=== PATIENT | male | born 1980 | race Caucasian/White ===

== ENCOUNTER 2016-11-07 12:59 | Emergency (ER) | payer OTHER ==
[2016-11-07] MEDS ORDERED: ONDANSETRON 4 MG/2 ML VIAL IVP ONE (13:51)
[2016-11-07] MEDS ORDERED: NS 1,000 ML IV ONE ×2 (13:51→14:19)
[2016-11-07] MEDS ORDERED: LORazepam 2 MG/ML INJ IVP ONE ×2 (13:51→15:29)
--- NOTE | 2016-11-07 13:51 | UCPHY ---
H & P Patient Type: New Chief Complaint Nursing Narrative: DRANK 12 SHOTS OF VODKA LAST NIGHT AROUND 6PM ; REPORTS PATRICIA, ANXIETY, SWEATS, SHAKES, VOMITING NOW Time Seen by Provider: 11/07/16 13:10 HPI/ROS: 36-year-old male presents complaining of alcohol withdrawal he states his last drink was at 6:00 p.m. yesterday. He states at that time he had 12 shots of vodka. He states he has decided to stop drinking and therefore if having nausea , vomiting and feels tremulous. He also states he does not want to have his children see him tremulous. Review of systems As per HPI Positive tremor General no fever no chills no weakness HEENT no eye pain no eye discharge. No eye redness, no sore throat Respiratory no cough, no shortness of breath Cardiac no chest pain, no peripheral edema GI no abdominal pain, no diarrhea, no constipation, positive nausea positive vomiting no flank pain, no hematuria, no dysuria Musculoskeletal no myalgias, no joint pain Heme no easy bruising, no easy bleeding Endo no polyuria, no polydipsia Skin no rashes, no pruritus Neuro no syncope, no dizziness, no headaches Psych is no suicidal ideation, no homicidal ideation Source: Patient Exam Limitations: No limitations - Personal History Current Tetanus/Diphtheria Vaccine: Unsure Tetanus Vaccine Date: 1997 - Medical/Surgical History Hx Asthma: No Hx Chronic Respiratory Disease: No Hx Diabetes: No Hx Cardiac Disease: No Hx Renal Disease: No Hx Cirrhosis: No Hx Alcoholism: Yes Hx HIV/AIDS: No Hx Splenectomy or Spleen Trauma: No Other PMH: KIDNEY STONES - Family History Significant Family History: No pertinent family hx - Social History Smoking Status: Current every day smoker Alcohol Use: Heavy - Physical Exam Exam: 36-year-old male alert and oriented with mild tremor, hypertensive tachycardic HEENT atraumatic normocephalic, extraocular muscles intact, anicteric Oropharynx negative for erythema negative exudate, tolerating her own secretions Neck supple no meningismus Lungs clear to auscultation bilaterally Heart regular rate and rhythm without murmur rub or gallop, tachycardic Abdomen nondistended normoactive bowel sounds soft nontender Back no CVA tenderness, no step-offs, no spinal tenderness Extremities no cyanosis clubbing or edema Neuro alert and oriented, no focal deficits, mild tremor generalized Constitutional: Initial Vital Signs Temperature (C) 36.6 C 11/07/16 13:09 Heart Rate 96 11/07/16 13:09 Respiratory Rate 20 11/07/16 13:09 Blood Pressure 191/120 H 11/07/16 13:09 O2 Sat (%) 93 11/07/16 13:09 O2 Delivery Mode Room Air Allergies/Adverse Reactions: No Known Allergies Allergy (Verified 11/07/16 13:09) Home Medications: Medication Instructions Recorded chlordiazePOXIDE [Librium 25 mg 25 mg PO TID #18 cap 11/07/16 (*)] Medical Decision Making ED Course/Re-evaluation: Patient seen and evaluated for alcohol withdrawal Last drink yesterday, alcohol less than 10 Electrolytes within normal limits Lipase negative LFTs negative Patient given IV normal saline 2 L, Ativan 2 mg IV push, Zofran 4 mg feeling markedly improved Patient discharged home on Librium taper Impression Acute alcohol withdrawal Plan Follow-up PCP for alcohol counseling referral Home on Librium taper If markedly worsening withdrawal symptoms go to her closest emergency department - Data Points Laboratory Results: Laboratory Results 11/07/16 13:19 11/07/16 13:19 11/07/16 11/07/16 13:19 13:19 WBC 10.57 10^3/uL H 10^3/uL (3.80-9.50) RBC 5.66 10^6/uL 10^6/uL (4.40-6.38) Hgb 18.5 g/dL H g/dL (13.7-17.5) Hct 50.0 % % (40.0-51.0) MCV 88.3 fL fL (81.5-99.8) MCH 32.7 pg pg (27.9-34.1) MCHC 37.0 g/dL H g/dL (32.4-36.7) RDW 11.9 % % (11.5-15.2) Plt Count 261 10^3/uL 10^3/uL (150-400) MPV 9.6 fL fL (8.7-11.7) Neut % (Auto) 63.4 % % (39.3-74.2) Lymph % (Auto) 29.0 % % (15.0-45.0) [place] % (Auto) 6.4 % % (4.5-13.0) Eos % (Auto) 0.6 % % (0.6-7.6) Baso % (Auto) 0.4 % % (0.3-1.7) Nucleat RBC Rel Count 0.0 % % (0.0-0.2) Absolute Neuts (auto) 6.70 10^3/uL H 10^3/uL (1.70-6.50) Absolute Lymphs (auto) 3.07 10^3/uL H 10^3/uL (1.00-3.00) Absolute Monos (auto) 0.68 10^3/uL 10^3/uL (0.30-0.80) Absolute Eos (auto) 0.06 10^3/uL 10^3/uL (0.03-0.40) Absolute Basos (auto) 0.04 10^3/uL 10^3/uL (0.02-0.10) Absolute Nucleated RBC 0.00 10^3/uL 10^3/uL (0-0.01) Immature Gran % 0.2 % % (0.0-1.1) Immature Gran # 0.02 10^3/uL 10^3/uL (0.00-0.10) Sodium 142 mEq/L mEq/L (134-144) Potassium 3.5 mEq/L mEq/L (3.5-5.2) Chloride 99 mEq/L mEq/L (97-110) Carbon Dioxide 20 mEq/l L mEq/l (22-31) Anion Gap 23 mEq/L H mEq/L (8-16) BUN 6 mg/dL L mg/dL (7-23) Creatinine 0.7 mg/dL mg/dL (0.7-1.3) Estimated GFR > 60 Glucose 141 mg/dL H mg/dL (70-100) Calcium 9.4 mg/dL mg/dL (8.5-10.4) Total Bilirubin 1.6 mg/dL H mg/dL (0.1-1.4) AST 74 IU/L H IU/L (17-59) ALT 60 IU/L IU/L (21-72) Alkaline Phosphatase 121 IU/L IU/L (38-126) Total Protein 8.1 g/dL g/dL (6.3-8.2) Albumin 4.7 g/dL g/dL (3.5-5.0) Lipase 83.0 IU/L IU/L (23-300) Ethyl Alcohol < 10 mg/dL mg/dL (0-10) Medications Given: Discontinued Medications Sodium Chloride (Ns) 1,000 mls @ 0 mls/hr IV ONCE ONE PRN Reason: Wide Open Stop: 11/07/16 13:52 Last Admin: 11/07/16 13:53 Dose: 1,000 mls Sodium Chloride (Ns) 1,000 mls @ 0 mls/hr IV ONCE ONE PRN Reason: Wide Open Stop: 11/07/16 14:20 Last Admin: 11/07/16 14:38 Dose: 1,000 mls Lorazepam (Ativan Injection) 1 mg IVP EDNOW ONE Stop: 11/07/16 13:52 Last Admin: 11/07/16 14:04 Dose: 1 mg Lorazepam (Ativan Injection) 1 mg IVP EDNOW ONE Stop: 11/07/16 15:30 Last Admin: 11/07/16 15:48 Dose: 1 mg Ondansetron HCl (Zofran) 4 mg IVP EDNOW ONE Stop: 11/07/16 13:52 Last Admin: 11/07/16 14:04 Dose: 4 mg Departure - Departure Disposition: Home, Routine, Self-Care Clinical Impression: Alcohol withdrawal Condition: Good Instructions: Alcohol Withdrawal (ED) Referrals: Wanda Aguilar MD [Primary Care Provider] - As per Instructions Prescriptions: chlordiazePOXIDE [Librium 25 mg (*)] 25 mg PO TID #18 cap - PQRS PQRS Measurement: Not applicable
[2016-11-07 14:01] LABS: % IMMATURE GRANULYOCYTES 0.2 % (0.0-1.1); ABSOLUTE IMMATURE GRANULOCYTES 0.02 10^3/uL (0.00-0.10); ADD DIFF? NO; ADD MORPH? NO; ADD SCAN? NO; ATYPICAL LYMPHOCYTE FLAG 0 (0-99); FRAGMENT RBC FLAG 0 (0-99); HEMOGLOBIN 18.5 g/dL (13.7-17.5); LEFT SHIFT FLG 0 (0-99); LIPEMIA HEMOLYSIS FLAG 90 (0-99); MEAN CELL HEMOGLOBIN 32.7 pg (27.9-34.1); MEAN CELL VOLUME 88.3 fL (81.5-99.8); MEAN PLATELET VOLUME 9.6 fL (8.7-11.7); PLATELET CLUMPS FLAG 0 (0-99); PLATELET COUNT 261 10^3/uL (150-400); RED BLOOD CELL COUNT 5.66 10^6/uL (4.40-6.38); RED CELL DISTRIBUTION WIDTH 11.9 % (11.5-15.2)
[2016-11-07 14:06] LABS: ALANINE AMINOTRANSFERASE 60 IU/L (21-72); ALBUMIN 4.7 g/dL (3.5-5.0); ALKALINE PHOSPHATASE 121 IU/L (38-126); ANION GAP 23 mEq/L (8-16); ASPARTATE AMINOTRANSFERASE 74 IU/L (17-59); BILIRUBIN,TOTAL 1.6 mg/dL (0.1-1.4); CALCIUM 9.4 mg/dL (8.5-10.4); CARBON DIOXIDE 20 mEq/l (22-31); CHLORIDE 99 mEq/L (97-110); CREATININE 0.7 mg/dL (0.7-1.3); GLOMERULAR FILTRATION RATE > 60; GLUCOSE 141 mg/dL (70-100); POTASSIUM 3.5 mEq/L (3.5-5.2); SODIUM 142 mEq/L (134-144); TOTAL PROTEIN 8.1 g/dL (6.3-8.2)
[2016-11-07 15:00] LABS: ETHANOL SERUM < 10 mg/dL (0-10)
[2016-11-07 16:22] VITALS: BP 163/114; PULSE 88; RESP 20; TEMP 97.9; O2SAT 94
== END 2016-11-07 16:29 | disposition home or self-care (01) ==
LOC: CED 12:59
DX: F10.239 Alcohol dependence with withdrawal, unspecified (principal)
CPT/HCPCS: 80053-PO; 83690-PO; 85025-PO; 96361-PO; 96374-PO; 96375-PO; 96376-PO; G0463-PO; G0480; J2060; J2405

== ENCOUNTER 2016-12-07 19:57 | Emergency (ER) | payer OTHER ==
--- NOTE | 2016-12-07 20:13 | EDPHY ---
H & P Stated Complaint: SI, denies plan; vomiting; ETOH - Personal History Current Tetanus/Diphtheria Vaccine: No Current Tetanus Diphtheria and Acellular Pertussis (TDAP): No Tetanus Vaccine Date: 1997 - Medical/Surgical History Hx Asthma: No Hx Chronic Respiratory Disease: No Hx Diabetes: No Hx Cardiac Disease: No Hx Renal Disease: No Hx Cirrhosis: No Hx Alcoholism: Yes Hx HIV/AIDS: No Hx Splenectomy or Spleen Trauma: No Other PMH: KIDNEY STONES, ETOH abuse - Social History Smoking Status: Current every day smoker Time Seen by Provider: 12/07/16 20:12 Constitutional: Initial Vital Signs Temperature (C) 37.3 C 12/07/16 20:00 Heart Rate 138 H 12/07/16 20:00 Respiratory Rate 20 12/07/16 20:00 Blood Pressure 191/133 H 12/07/16 20:00 O2 Sat (%) 95 12/07/16 20:00 O2 Delivery Mode Room Air O2 (L/minute) 2 Allergies/Adverse Reactions: No Known Allergies Allergy (Verified 11/07/16 13:09) Home Medications: Medication Instructions Recorded Ativan 12/07/16 Medical Decision Making ED Course/Re-evaluation: CHIEF COMPLAINT: Psychiatric evaluation HISTORY OF PRESENT ILLNESS: The patient is a 36 y/o male arriving with his family members complaining of suicidal ideation. He states he's been feeling suicidal and sad for awhile and has been binge-drinking recently because of these feelings. He has had prior episodes of suicidal ideation, but denies prior hospitalization for this. He reports multiple triggers have lead to his current mood, but is reluctant to discuss these at this time. In general, he feels he is "just not doing well."He denies any attempts to harm himself today. No homicidal ideation. No congestion. REVIEW OF SYSTEMS: A 10 point review of systems was performed and is negative with the exception of the elements mentioned in the history of present illness. PHYSICAL EXAM: General Appearance: Alert, well hydrated, smells of alcohol, appropriate, and non-toxic appearing. Head: Atraumatic without scalp tenderness or obvious injury Eyes: Pupils equal, round, reactive to light and accommodation, EOMI, no trauma , bilateral injection. Nose: Atraumatic, no rhinorrhea, clear. Throat: mucus membranes moist. Neck: Supple, nontender, no lymphadenopathy. Respiratory: No retractions, no distress, no wheezes, and no accessory muscle use. Lungs are clear to auscultation bilaterally. Cardiovascular: Regular rate and rhythm, no murmurs, rubs, or gallops. Good capillary refill all extremities. Gastrointestinal: Abdomen is soft, nontender, non-distended, no masses, no rebound, no guarding, no peritoneal signs. Musculoskeletal: Normal active ROM of all extremities, atraumatic. Neurological: Alert, appropriate, and interactive. Nonfocal. Skin: No rashes, good turgor, no nodules on palpation. Past medical history: depression Past surgical history: denies Family history: noncontributory Social history: alcohol abuse. family members at bedside. DIFFERENTIAL DIAGNOSIS: The differential diagnosis for the patient's depression included but was not limited to functional and major depression, situational depression, medication side effect, drugs, and alcohol abuse. MEDICAL DECISION MAKING: Patient is in no acute distress and is hemodynamically stable. We are awaiting psychiatric team's evaluation. Patient has known history of psychiatric disorders and is here for evaluation. (Fabián Dozier) 5:00 a.m.- I received sign-out on this patient at approximately 11:00 p.m. last night. The patient received IV fluids for an anion gap acidosis likely related to alcoholic ketosis. He was feeling nauseated, thus has received Zofran and Phenergan. His labs were repeated and his gap is closing. His glucose is also normalizing. He is experiencing some signs of alcohol withdrawal including tachycardia and fine tremor. I have given him Ativan for this. He is still awaiting psychiatric evaluation at this time. At 7:00 a.m., the case will be signed out to the oncoming provider Dr. Villela. (Aissatou Deleon) I took over care of this patient at 7:00 a.m.. This patient is on an M1 hold for alcohol intoxication and suicidal ideation. He has required some IV Ativan for mild withdrawal symptoms. He is to be evaluated by Behavioral Health this morning. 9:00 a.m., patient seen and evaluated by Behavioral Health. He is sober. He is not suicidal. He has a drinking problem. He has been cleared for discharge by the on-call psychiatrist Dr. Marquez. Plan is for outpatient follow-up for treatment of his substance abuse. Patient is in agreement with this plan. Return to emergency department precautions reviewed with him. He was discharged in good condition. (Calvin Villela) - Data Points Laboratory Results: Laboratory Results 12/07/16 20:50 12/08/16 02:20 12/08/16 12/07/16 02:20 20:50 Sodium 142 mEq/L mEq/L 143 mEq/L mEq/L (134-144) (134-144) Potassium 3.4 mEq/L L mEq/L 3.3 mEq/L L mEq/L (3.5-5.2) (3.5-5.2) Chloride 104 mEq/L mEq/L 96 mEq/L L mEq/L (97-110) (97-110) Carbon Dioxide 17 mEq/l L mEq/l 15 mEq/l L mEq/l (22-31) (22-31) Anion Gap 21 mEq/L H mEq/L 32 mEq/L H mEq/L (8-16) (8-16) BUN 6 mg/dL L mg/dL 6 mg/dL L mg/dL (7-23) (7-23) Creatinine 0.7 mg/dL mg/dL 0.9 mg/dL mg/dL (0.7-1.3) (0.7-1.3) Estimated GFR > 60 > 60 Glucose 228 mg/dL H mg/dL 339 mg/dL H mg/dL (70-100) (70-100) Calcium 8.7 mg/dL mg/dL 10.0 mg/dL mg/dL (8.5-10.4) (8.5-10.4) Salicylates < 1.0 mg/dL L mg/dL (2.0-20.0) Acetaminophen < 10 mcg/mL L mcg/mL (10.0-30.0) Ethyl Alcohol 264 mg/dL H mg/dL (0-10) Medications Given: Discontinued Medications Al Hydroxide/Mg Hydroxide (Maalox Susp) 30 ml PO ONCE ONE Stop: 12/07/16 21:11 Last Admin: 12/07/16 21:23 Dose: 30 ml Chlordiazepoxide HCl (Librium) 25 mg PO EDNOW ONE Stop: 12/08/16 05:14 Last Admin: 12/08/16 07:13 Dose: 25 mg Famotidine (Pepcid) 20 mg PO EDNOW ONE Stop: 12/07/16 22:17 Last Admin: 12/07/16 22:26 Dose: 20 mg Hyoscyamine Sulfate (Levsin, Hyomax-Sl) 0.25 mg PO ONCE ONE Stop: 12/07/16 21:11 Last Admin: 12/07/16 21:23 Dose: 0.25 mg Sodium Chloride (Ns) 1,000 mls @ 0 mls/hr IV ONCE ONE PRN Reason: Wide Open Stop: 12/07/16 22:36 Last Admin: 12/07/16 21:00 Dose: 1,000 mls Sodium Chloride (Ns) 1,000 mls @ 0 mls/hr IV ONCE ONE PRN Reason: Wide Open Stop: 12/07/16 22:36 Last Admin: 12/07/16 22:50 Dose: 1,000 mls Lidocaine (Lidocaine 2% Viscous) 15 ml PO ONCE ONE Stop: 12/07/16 21:11 Last Admin: 12/07/16 21:23 Dose: 15 ml Lorazepam (Ativan Injection) 1 mg IVP EDNOW ONE Stop: 12/07/16 21:23 Last Admin: 12/07/16 21:23 Dose: 1 mg Lorazepam (Ativan Injection) 1 mg IVP EDNOW ONE Stop: 12/08/16 02:40 Last Admin: 12/08/16 02:45 Dose: 1 mg Lorazepam (Ativan Injection) 1 mg IVP EDNOW ONE Stop: 12/08/16 04:58 Last Admin: 12/08/16 04:56 Dose: 1 mg Ondansetron HCl (Zofran) 4 mg IVP EDNOW ONE Stop: 12/07/16 23:03 Last Admin: 12/07/16 23:00 Dose: 4 mg Pantoprazole Sodium (Protonix) 40 mg PO EDNOW ONE Stop: 12/07/16 22:17 Last Admin: 12/07/16 22:26 Dose: 40 mg Promethazine HCl (Phenergan) 12.5 mg IVP ONCE ONE Stop: 12/07/16 23:45 Last Admin: 12/07/16 23:40 Dose: 12.5 mg Departure - Departure Disposition: Home, Routine, Self-Care Clinical Impression: Suicidal ideation Depression Qualifiers: Depression Type: unspecified Qualified Code(s): F32.9 - Major depressive disorder, single episode, unspecified Alcohol intoxication Qualifiers: Complication of substance-induced condition: uncomplicated Qualified Code(s): F10.120 - Alcohol abuse with intoxication, uncomplicated Condition: Fair Instructions: Depression (ED), Abuse of Alcohol (ED) Additional Instructions: Read and follow provided instructions. Follow-up with your primary care physician and Behavioral Health as discussed in 1-2 days for re-evaluation and further management. Do not drink alcohol. Return to the emergency department for worsening symptoms, suicidal thoughts or other serious concerns. Referrals: Wanda Aguilar MD [Primary Care Provider] - As per Instructions Report Scribed for: Fabián Dozier Report Scribed by: Hermila Estrada Date of Report: 12/07/16 Time of Report: 20:37
[2016-12-07 20:57] LABS: % IMMATURE GRANULYOCYTES 0.4 % (0.0-1.1); ABSOLUTE IMMATURE GRANULOCYTES 0.05 10^3/uL (0.00-0.10); ADD DIFF? NO; ADD MORPH? NO; ADD SCAN? NO; ATYPICAL LYMPHOCYTE FLAG 0 (0-99); FRAGMENT RBC FLAG 0 (0-99); HEMATOCRIT 52.5 % (40.0-51.0); HEMOGLOBIN 19.1 g/dL (13.7-17.5); LEFT SHIFT FLG 0 (0-99); LIPEMIA HEMOLYSIS FLAG 90 (0-99); MEAN CELL HEMOGLOBIN 31.8 pg (27.9-34.1); MEAN CELL HEMOGLOBIN CONCENTR. 36.4 g/dL (32.4-36.7); MEAN CELL VOLUME 87.5 fL (81.5-99.8); MEAN PLATELET VOLUME 9.7 fL (8.7-11.7); PLATELET CLUMPS FLAG 0 (0-99); PLATELET COUNT 218 10^3/uL (150-400); RED CELL DISTRIBUTION WIDTH 12.1 % (11.5-15.2)
[2016-12-07] MEDS ORDERED: HYOSCYAMINE SULFATE 0.125 MG TAB PO ONE (21:10)
[2016-12-07] MEDS ORDERED: LIDOCAINE 2% VISCOUS 15 ML UDCUP PO ONE (21:10)
[2016-12-07] MEDS ORDERED: MAG HYDROX/AL HYDROX/SIMETH 30 ML UDCUP PO ONE (21:10)
[2016-12-07] MEDS ORDERED: LORazepam 2 MG/ML INJ ONE (21:13)
[2016-12-07 21:18] LABS: ANION GAP 32 mEq/L (8-16); CARBON DIOXIDE 15 mEq/l (22-31); CHLORIDE 96 mEq/L (97-110); CREATININE 0.9 mg/dL (0.7-1.3); ETHANOL SERUM 264 mg/dL (0-10); GLOMERULAR FILTRATION RATE > 60; GLUCOSE 339 mg/dL (70-100); POTASSIUM 3.3 mEq/L (3.5-5.2); SALICYLATE < 1.0 mg/dL (2.0-20.0); SODIUM 143 mEq/L (134-144)
[2016-12-07] MEDS ORDERED: LORazepam 2 MG/ML INJ IVP ONE (21:22)
[2016-12-07] MEDS ORDERED: PANTOPRAZOLE SODIUM 40 MG TAB PO ONE (22:16)
[2016-12-07] MEDS ORDERED: FAMOTIDINE 20 MG TAB PO ONE (22:16)
[2016-12-07] MEDS ORDERED: NS 1,000 ML IV ONE ×2 (22:35)
[2016-12-07] MEDS ORDERED: ONDANSETRON 4 MG/2 ML VIAL ONE (22:59)
[2016-12-07] MEDS ORDERED: ONDANSETRON 4 MG/2 ML VIAL IVP ONE (23:02)
[2016-12-07] MEDS ORDERED: PROMETHAZINE HCL 25 MG/ML INJ ONE (23:38)
[2016-12-07] MEDS ORDERED: PROMETHAZINE HCL 25 MG/ML INJ IVP ONE (23:44)
[2016-12-08 02:39] LABS: ANION GAP 21 mEq/L (8-16); CALCIUM 8.7 mg/dL (8.5-10.4); CARBON DIOXIDE 17 mEq/l (22-31); CHLORIDE 104 mEq/L (97-110); CREATININE 0.7 mg/dL (0.7-1.3); GLOMERULAR FILTRATION RATE > 60; GLUCOSE 228 mg/dL (70-100); POTASSIUM 3.4 mEq/L (3.5-5.2); SODIUM 142 mEq/L (134-144)
[2016-12-08] MEDS ORDERED: LORazepam 2 MG/ML INJ IVP ONE ×2 (02:39→04:57)
[2016-12-08 02:51] VITALS: RESP 16
[2016-12-08] MEDS ORDERED: LORazepam 2 MG/ML INJ ONE (04:53)
[2016-12-08] MEDS ORDERED: chlordiazePOXIDE 25 MG CAP PO ONE (05:13)
[2016-12-08 09:18] VITALS: BP 140/90; PULSE 85; TEMP 97.7; O2SAT 95
== END 2016-12-08 09:18 | disposition home or self-care (01) ==
DX: R45.851 Suicidal ideations (principal); F10.120 Alcohol abuse with intoxication, uncomplicated; F32.9 Major depressive disorder, single episode, unspecified
CPT/HCPCS: 80305; 96374; G0480; J2060; J2405; J2550

== ENCOUNTER → 2017-06-12 | Outpatient (CLI) | payer MEDICAID | LOC: FIMAGING 09:05 | PROVIDERS: ATTEND Physician Assistant | DX: M79.605 Pain in left leg (principal); M79.604 Pain in right leg; Z83.49 Family history of other endocrine, nutritional and metabolic diseases ==

== ENCOUNTER 2017-08-20 12:45 | Emergency (ER) | payer MEDICAID ==
[2017-08-20 13:11] VITALS: RESP 18; TEMP 98
[2017-08-20] MEDS ORDERED: ONDANSETRON 4 MG/2 ML VIAL IVP ONE (13:14)
[2017-08-20] MEDS ORDERED: NS 1,000 ML IV ONE (13:14)
--- NOTE | 2017-08-20 13:19 | EDPHY ---
H & P Stated Complaint: c/o nausea, dizzyness, vomiting and upper abd pain since 2099 last pm Time Seen by Provider: 08/20/17 12:59 HPI/ROS: This patient describes onset of nausea yesterday evening while watching the [place] Bowl. He initially attributed this to overeating but the symptoms persisted. He took 2 Aleve p.m. is a at bedtime and then awakened at 3:00 a.m. with vertiginous symptoms feeling like he was "on a [id number] ". He then had onset of vomiting with intermittent vomiting since that time and ongoing nausea. He did try a nausea pill at 4:00 a.m. question Phenergan p.o. but vomited shortly thereafter. No other exacerbating factors except that he reports head movement worsens his vertigo as does movement in general and this tends to trigger more vomiting. He started developing abdominal discomfort lower belly after the onset of nausea vomiting. He describes this is mild. He also reports 5/10 bifrontal headache similar to prior headaches. ROS: No fevers or chills. No significant fatigue. HEENT: Mild coryza over the past 2 weeks. He denies any tinnitus or hearing changes. No ear pain. No sore throat. Pulmonary: Occasional cough over the past 2 weeks as her dry cough without other symptoms. He wonders if lisinopril may be causing this. No hemoptysis or other sputum production. Cardiovascular: No chest pain or heart palpitations. He denies lightheadedness. GI: As per HPI. Normal bowel movements. No hematemesis. : No urinary symptoms or testicle pain. Endocrine: No complaints Neuro: No focal numbness tingling or weakness. Integumentary: No skin rash Complete review of symptoms is otherwise negative. Exam Limitations: No limitations - Personal History Current Tetanus Diphtheria and Acellular Pertussis (TDAP): Yes Tetanus Vaccine Date: 1997 - Medical/Surgical History PMH: Alcohol abuse Hypertension Hx Asthma: No Hx Chronic Respiratory Disease: No Hx Diabetes: No Hx Cardiac Disease: No Hx Renal Disease: No Hx Cirrhosis: No Hx Alcoholism: Yes Hx HIV/AIDS: No Hx Splenectomy or Spleen Trauma: No Other PMH: KIDNEY STONES, ETOH abuse - Family History Significant Family History: No pertinent family hx - Social History Smoking Status: Current every day smoker Alcohol Use: Sober Drug Use: None - Physical Exam Exam: General Appearance: Alert, no distress. Eyes: Pupils equal and round no pallor or injection. Extraocular motions are intact with no nystagmus appreciated. ENT, Mouth: Mucous membranes moist. Respiratory: There are no retractions, lungs are clear to auscultation. Cardiovascular: Regular rate and rhythm. No murmur gallop or rub Gastrointestinal: Normoactive, soft with moderate right lower quadrant tenderness. He reports mild rebound tenderness. No guarding. No organomegaly. : No testicular tenderness. No CVA tenderness Neurological: GCS 15. Cranial nerves 2-12 grossly intact. No pronator drift. Cerebellar exam is intact bilaterally with normal finger to nose bilaterally. He does have increased vertigo with head movement and mildly with extraocular motions. Skin: Warm and dry, no rashes. Musculoskeletal: Neck is supple nontender. Extremities are symmetrical, full range of motion. Psychiatric: Mood and affect are normal DIFFERENTIAL DIAGNOSIS: After history and physical exam differential diagnosis was considered for benign positional vertigo, dehydration, viral illness, food poisoning, appendicitis, lisinopril cough, bronchitis, smoker's cough, pneumonia Constitutional: Initial Vital Signs Temperature (C) 36.6 C 08/20/17 13:06 Heart Rate 105 H 08/20/17 13:06 Respiratory Rate 18 08/20/17 13:06 Blood Pressure 137/103 H 08/20/17 13:06 O2 Sat (%) 96 08/20/17 13:06 O2 Delivery Mode Room Air Allergies/Adverse Reactions: No Known Allergies Allergy (Verified 11/07/16 13:09) Home Medications: Medication Instructions Recorded Anibuse 08/20/17 Atorvastatin Calcium 08/20/17 Lisinopril-Hctz 10-12.5 mg Tab 08/20/17 Meclizine HCl [Meclizine HCl 25 mg 25 mg PO TID PRN #20 tab 08/20/17 (RX,OTC)] Ondansetron Odt [Zofran Odt] 4 - 8 mg PO Q4PRN PRN #4 tab 08/20/17 Prozac 10 MG (*) 08/20/17 Medical Decision Making - Diagnostics Imaging Results: CT abdomen pelvis with IV contrast rules out appendicitis appears consistent with gastroenteritis. Discussed this finding with Dr. Glasgow. Imaging: Discussed imaging studies w/ fisher scallop Radiologist ED Course/Re-evaluation: IV normal saline bolus Zofran IV, Benadryl IV Toradol IV with relief of belly discomfort Meclizine with relief of vertigo. Review of initial labs [place] [id number]. Urinalysis is normal. Basic metabolic panel normal. Given patient's nausea and vomiting, right lower quadrant pain and tenderness and leukocytosis, will proceed with CT imaging to evaluate for potential appendicitis. Discussion: This patient presents with symptoms I think are consistent with viral illness caused a benign positional vertigo and gastroenteritis. Because of his right lower quadrant tenderness and leukocytosis we proceeded with the abdomen pelvis which ruled out appendicitis. - Data Points Laboratory Results: Laboratory Results 08/20/17 13:20 08/20/17 13:20 08/20/17 08/20/17 08/20/17 14:42 13:20 13:20 WBC 15.04 10^3/uL H 10^3/uL (3.80-9.50) RBC 5.96 10^6/uL 10^6/uL (4.40-6.38) Hgb 17.2 g/dL g/dL (13.7-17.5) Hct 47.5 % % (40.0-51.0) MCV 79.7 fL L fL (81.5-99.8) MCH 28.9 pg pg (27.9-34.1) MCHC 36.2 g/dL g/dL (32.4-36.7) RDW 13.6 % % (11.5-15.2) Plt Count 262 10^3/uL 10^3/uL (150-400) MPV 10.0 fL fL (8.7-11.7) Neut % (Auto) 67.4 % % (39.3-74.2) Lymph % (Auto) 24.7 % % (15.0-45.0) [place] % (Auto) 5.9 % % (4.5-13.0) Eos % (Auto) 1.1 % % (0.6-7.6) Baso % (Auto) 0.3 % % (0.3-1.7) Nucleat RBC Rel Count 0.0 % % (0.0-0.2) Absolute Neuts (auto) 10.14 10^3/uL H 10^3/uL (1.70-6.50) Absolute Lymphs (auto) 3.71 10^3/uL H 10^3/uL (1.00-3.00) Absolute Monos (auto) 0.88 10^3/uL H 10^3/uL (0.30-0.80) Absolute Eos (auto) 0.17 10^3/uL 10^3/uL (0.03-0.40) Absolute Basos (auto) 0.05 10^3/uL 10^3/uL (0.02-0.10) Absolute Nucleated RBC 0.00 10^3/uL 10^3/uL (0-0.01) Immature Gran % 0.6 % % (0.0-1.1) Immature Gran # 0.09 10^3/uL 10^3/uL (0.00-0.10) Sodium 145 mEq/L mEq/L (135-145) Potassium 3.6 mEq/L mEq/L (3.5-5.2) Chloride 101 mEq/L mEq/L (97-110) Carbon Dioxide 23 mEq/l mEq/l (22-31) Anion Gap 21 mEq/L H mEq/L (8-16) BUN 13 mg/dL mg/dL (7-23) Creatinine 0.8 mg/dL mg/dL (0.7-1.3) Estimated GFR > 60 Glucose 104 mg/dL H mg/dL (70-100) Calcium 10.2 mg/dL mg/dL (8.5-10.4) Urine Color YELLOW Urine Appearance CLEAR Urine pH 6.5 (5.0-7.5) Ur Specific [place] <= 1.005 (1.002-1.030) Urine Protein NEGATIVE (NEGATIVE) Urine Ketones NEGATIVE (NEGATIVE) Urine Blood NEGATIVE (NEGATIVE) Urine Nitrate NEGATIVE (NEGATIVE) Urine Bilirubin NEGATIVE (NEGATIVE) Urine Urobilinogen 0.2 EU EU (0.2-1.0) Ur Leukocyte Esterase NEGATIVE (NEGATIVE) Urine Glucose NEGATIVE (NEGATIVE) Medications Given: Discontinued Medications Diphenhydramine HCl (Benadryl Injection) 25 mg IVP EDNOW ONE Stop: 08/20/17 13:15 Last Admin: 08/20/17 13:37 Dose: 25 mg Sodium Chloride (Ns) 1,000 mls @ 0 mls/hr IV EDNOW ONE; Wide Open PRN Reason: Protocol Stop: 08/20/17 13:15 Last Admin: 08/20/17 13:36 Dose: 1,000 mls Ketorolac Tromethamine (Toradol) 30 mg IVP EDNOW ONE Stop: 08/20/17 14:22 Last Admin: 08/20/17 14:42 Dose: 30 mg Meclizine HCl (Meclizine Hcl) 25 mg PO EDNOW ONE Stop: 08/20/17 14:22 Last Admin: 08/20/17 14:42 Dose: 25 mg Ondansetron HCl (Zofran) 4 mg IVP EDNOW ONE Stop: 08/20/17 13:15 Last Admin: 08/20/17 13:37 Dose: 4 mg Departure - Departure Disposition: Home, Routine, Self-Care Clinical Impression: Right lower quadrant abdominal pain, Dehydration Vomiting Qualifiers: Vomiting type: unspecified Vomiting Intractability: non-intractable Nausea presence: with nausea Qualified Code(s): R11.2 - Nausea with vomiting, unspecified Benign positional vertigo Qualifiers: Laterality: unspecified laterality Qualified Code(s): H81.10 - Benign paroxysmal vertigo, unspecified ear Condition: Good Instructions: Gastroenteritis (ED), Benign Paroxysmal Positional Vertigo (ED) Additional Instructions: Diagnoses: 1. Vomiting due to viral illness 2. Lower abdominal pain 3. Benign positional vertigo 4. Dehydration Plan: Drink plenty fluids. Light diet to feel improved Zofran for nausea or vomiting if needed under the tongue Meclizine for dizziness as needed Ibuprofen or Tylenol for belly discomfort as needed. Symptoms should improve over the next few days. Return for any significant worsening. Follow up with primary care physician for any ongoing symptoms despite treatment plan. Prescriptions: Meclizine HCl [Meclizine HCl 25 mg (RX,OTC)] 25 mg PO TID PRN #20 tab PRN Reason: vertigo Ondansetron Odt [Zofran Odt] 4 - 8 mg PO Q4PRN PRN #4 tab PRN Reason: Vomiting
[2017-08-20 13:31] LABS: PLATELET COUNT 262 10^3/uL (150-400)
[2017-08-20] MEDS ORDERED: IOPAMIDOL (ISOVUE-300) 100 ML BTL ONE (14:02)
[2017-08-20] MEDS ORDERED: MECLIZINE HCL 25 MG TAB PO ONE (14:21)
[2017-08-20] MEDS ORDERED: KETOROLAC 30 MG/1 ML SDV IVP ONE (14:21)
[2017-08-20 15:21] VITALS: BP 115/62; PULSE 75; O2SAT 98
== END 2017-08-20 15:18 | disposition home or self-care (01) ==
LOC: CED 12:45
PROC: 3E0337Z Introduction of Electrolytic and Water Balance Substance into Peripheral Vein, Percutaneous Approach (ICD-10-PCS; principal; 2017-08-20)
DX: H81.10 Benign paroxysmal vertigo, unspecified ear (principal); E86.0 Dehydration; R10.31 Right lower quadrant pain; R11.2 Nausea with vomiting, unspecified; F17.200 Nicotine dependence, unspecified, uncomplicated; E86.9 Volume depletion, unspecified
CPT/HCPCS: 71046-PO; 74177-PO; 80048-PO; 81003-PO; 85025-PO; 96374; J1200; J1885; J2405; Q9967